=== PATIENT | male | born 1945 | race Caucasian/White ===

== ENCOUNTER 2017-07-09 09:01 | Day surgery (SDC) | payer MEDICARE, BC ==
[~2017-07-09 09:01] MED LIST: Lactated Ringers 1,000 ML IV SCH; Propofol 200 MG/20 ML SDV ONE; fentaNYL 100 MCG/2 ML SDV ONE
[2017-07-09 12:41] VITALS: BP 144/94
--- NOTE | 2017-07-09 18:30 | OR ---
DATE OF PROCEDURE: 07/09/2017 PREOPERATIVE DIAGNOSIS: History of precancerous polyps. POSTOPERATIVE DIAGNOSIS: Diverticulosis, right and transverse colon small polyps, history of precancerous polyps. PROCEDURE: Colonoscopy to the cecum with biopsy resection of right colon and transverse colon polyps. SURGEON: Suhail Lyman MD. ANESTHESIA: IV anesthesia with monitored anesthesia care. INDICATION: This is a 71-year-old white male who is referred for a colonoscopy because of a history of precancerous polyps. He says his last colonoscopic exam was done over a year ago. I counseled him for a colonoscopy with possible biopsy and/or polypectomy including risks and alternatives, and he gave his informed consent to proceed. DESCRIPTION OF PROCEDURE: The patient was placed in the left lateral decubitus position. IV anesthesia was administered by the Anesthesia Service. Time-out was held. A rectal exam was performed, which was unremarkable. The flexible video Olympus colonoscope was introduced through his anus, up his rectum, and out his colon all way to the cecum. En route, we saw several left-sided diverticula. There was no bleeding or inflammation associated with any of them. Additionally, en route to the cecum, we saw a small transverse colon polyp, which was removed with the biopsy forceps. Once the cecum was reached, the scope was slowly withdrawn examining the mucosa throughout. We saw a small polyp in the right colon, which was removed with the biopsy forceps. The scope was withdrawn further with no other additional lesions noted. The scope was retroflexed in the rectum with some hemorrhoidal tissue seen, fairly unremarkable. The scope was straightened and removed. He tolerated the procedure well. Suhail Lyman MD /[id number] MTDD
== END 2017-07-09 12:45 | disposition home or self-care (01) ==
LOC: JP.SDS 09:01
PROVIDERS: ATTEND Surgery
DX: Z12.11 Encounter for screening for malignant neoplasm of colon (principal); D12.2 Benign neoplasm of ascending colon; D12.3 Benign neoplasm of transverse colon; K57.30 Diverticulosis of large intestine without perforation or abscess without bleeding; Z86.010 Personal history of colon polyps
CPT/HCPCS: 45380; 88305; J2704; J3010

== ENCOUNTER 2018-03-06 08:46 | Emergency (ER) | payer MEDICARE, BC ==
[2018-03-06] MEDS ORDERED: HYDROmorphone 0.5 MG/0.5 ML Syringe IM ONE (09:25)
--- NOTE | 2018-03-06 09:27 | EDM.PDOC ---
ED HPI GENERAL MEDICAL PROBLEM - General Chief Complaint: Headache Stated Complaint: INJURED WHILE PULLING OUT A HOSE Time Seen by Provider: 03/06/18 09:26 Source of Information: Reports: Patient History Limitations: Reports: No Limitations - History of Present Illness INITIAL COMMENTS - FREE TEXT/NARRATIVE: pt is on coumadin and he fell and hit the back of his head on Sunday. On Sunday he developed alot of lit sensitivity and a bad headache. Onset: Other ( Headache started on Sunday. ) Duration: Hour(s):, Getting Worse Location: Reports: Head, Back Associated Symptoms: Reports: No Other Symptoms Headache Pain Score (Numeric/FACES): 8 Lower Sacral Pain Score (Numeric/FACES): 5 - Related Data Allergies Allergy/AdvReac Type Severity Reaction Status Date / Time No Known Allergies Allergy Verified 07/09/17 09:08 Home Meds: Home Meds Aspirin 81 mg PO DAILY 06/12/16 [History] Cholecalciferol (Vitamin D3) [Vitamin D3] 2,000 unit PO DAILY 06/12/16 [History] Furosemide [Lasix] 40 mg PO DAILY 06/12/16 [History] Metoprolol Tartrate [Lopressor] 25 mg PO BID 06/12/16 [History] Potassium Chloride [Klor-Con M20] 10 meq PO DAILY 06/12/16 [History] Terazosin [Hytrin] 5 mg PO BEDTIME 06/12/16 [History] Warfarin [Coumadin] 5 mg PO ASDIRECTED 06/12/16 [History] Melatonin 3 mg PO BEDTIME PRN 06/14/16 [History] Losartan [Cozaar] 100 mg PO DAILY 07/06/17 [History] Past Medical History HEENT History: Reports: Impaired Vision Cardiovascular History: Reports: Afib, Hypertension, Pacemaker, Other (See Below ) Other Cardiovascular History: ICD/PACEMAKER Respiratory History: Reports: None Gastrointestinal History: Reports: None Genitourinary History: Reports: Other (See Below) Other Genitourinary History: 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 Musculoskeletal History: Reports: Arthritis Neurological History: Reports: None Psychiatric History: Reports: None Endocrine/Metabolic History: Reports: None Hematologic History: Reports: None Immunologic History: Reports: None Oncologic (Cancer) History: Reports: Basal Cell Carcinoma Dermatologic History: Reports: None - Infectious Disease History Infectious Disease History: Reports: None - Past Surgical History Head Surgeries/Procedures: Reports: None Cardiovascular Surgical History: Reports: AICD, Other (See Below) Other Cardiovascular Surgeries/Procedures: ANGIOGRAM GI Surgical History: Reports: Colonoscopy, Hernia, Inguinal Musculoskeletal Surgical History: Reports: None Social & Family History - Family History Family Medical History: Noncontributory - Tobacco Use Smoking Status *Q: Never Smoker - Caffeine Use Caffeine Use: Reports: Coffee - Alcohol Use Days Per Week of Alcohol Use: 7 Number of Drinks Per Day: 2 Total Drinks Per Week: 14 - Recreational Drug Use Recreational Drug Use: No ED ROS GENERAL - Review of Systems Review Of Systems: See Below Constitutional: Reports: No Symptoms HEENT: Reports: Other (marked lite sensitivity) Respiratory: Reports: No Symptoms Cardiovascular: Reports: No Symptoms Endocrine: Reports: No Symptoms GI/Abdominal: Reports: Nausea : Reports: No Symptoms Musculoskeletal: Reports: No Symptoms Skin: Reports: No Symptoms Neurological: Reports: Headache, Other (very slight confusion) Psychiatric: Reports: No Symptoms - Physical Exam Exam: See Below Text/Narrative:: pt arrived with a lite sensitity and a very severe headache. He fell on sunday and he hit the back of his head. he is on coumadin therapy. Exam Limited By: No Limitations General Appearance: Alert, Moderate Distress, Other ( He describes his headache as a 8. ) Ears: Normal TMs Nose: Normal Inspection Throat/Mouth: Normal Inspection Head Exam: Other (Pt does not have alot of swelling or hematoma on the back of his head. ) Neck: Normal Inspection Respiratory/Chest: No Respiratory Distress Cardiovascular: Regular Rate, Rhythm GI/Abdominal: Soft, Non-Tender (Male) Exam: Deferred Rectal (Males) Exam: Deferred Neuro Exam (Abbreviated): Alert, Oriented, Normal Cognition Back Exam: Normal Inspection Extremities: Normal Inspection Psychiatric: Normal Affect Course - Vital Signs Last Recorded V/S: Last Vital Signs Temp 36.0 C 03/06/18 10:32 Pulse 70 03/06/18 10:32 Resp 13 03/06/18 10:32 BP 161/89 H 03/06/18 10:32 Pulse Ox 96 03/06/18 10:32 - Orders/Labs/Meds Labs: Laboratory Tests 03/06/18 03/06/18 Range/Units 09:25 09:39 WBC 11.4 H (4.5-11.0) K/uL RBC 4.96 (4.30-5.90) M/uL Hgb 15.0 (12.0-15.0) g/dL Hct 44.8 (40.0-54.0) % MCV 90 (80-98) fL MCH 30 (27-31) pg MCHC 34 (32-36) % Plt Count 181 (150-400) K/uL Neut % (Auto) 87 H (36-66) % Lymph % (Auto) 5 L (24-44) % [place] % (Auto) 8 H (2-6) % Eos % (Auto) 0 L (2-4) % Baso % (Auto) 0 (0-1) % PT 19.7 H (9.5-12.0) sec INR 1.80 H (0.80-1.20) Meds: Medications Discontinued Medications Generic Name Dose Route Start Last Admin Trade Name Freq PRN Reason Stop Dose Admin Hydromorphone HCl 0.5 mg 03/06/18 09:25 03/06/18 09:29 Dilaudid IM 03/06/18 09:26 0.5 mg ONETIME ONE Administration - Re-Assessments/Exams Free Text/Narrative Re-Assessment/Exam: 03/06/18 10:03 cat scan howed a good sized subaranoid bleed in the rt temporal fossa. He may need evaluation of his lumbar area which was not done in [place]. Departure - Departure Time of Disposition: 10:40 Disposition: DC/Tfer to Acute Hospital 02 Condition: Fair Clinical Impression: Subarachnoid hemorrhage, History of Coumadin therapy, Lumbar contusion - Discharge Information Referrals: Omer Guillen MD [Primary Care Provider] - Forms: ED Department Discharge Care Plan Goals: transfer to [facility]-- neurosurgery care.
--- NOTE | 2018-03-06 10:18 | CT ---
CT Head wo Cont CLINICAL HISTORY: Head trauma, headache COMPARISON: None TECHNIQUE: Transverse scans were obtained from the base of the skull through the vertex without IV co ntrast on a multislice, multidetector CT scanner. Auto dosage reduction and iterative reconstruction techniques employed. FINDINGS: There is subdural hemorrhage on the right involving the right temporal fossa tentorium and sagittal sulcus. The there is minimal asymmetry which may be mass effect on the right lateral ventric le. The there is no shift of the midline. Underlying contusion in the right occipital lobe is not exc luded. The no calvarial fracture is identified. IMPRESSION: Subdural hematoma in the right the temporal fossa, tentorium and sagittal sulcus without significant mass effect. Underlying right occipital contusion is not excluded. Short-term follow-up recommended
[2018-03-06 10:33] VITALS: BP 161/89
== END 2018-03-06 10:52 ==
LOC: JP.ED 08:46
DX: S06.6X9A Traumatic subarachnoid hemorrhage with loss of consciousness of unspecified duration, initial encounter (principal); S30.0XXA Contusion of lower back and pelvis, initial encounter; I48.91 Unspecified atrial fibrillation; I10 Essential (primary) hypertension; M19.90 Unspecified osteoarthritis, unspecified site; Z79.01 Long term (current) use of anticoagulants; Z79.899 Other long term (current) drug therapy; Z79.82 Long term (current) use of aspirin; W01.198A Fall on same level from slipping, tripping and stumbling with subsequent striking against other object, initial encounter
CPT/HCPCS: 36415; 70450; 85025; 85610; 96372; 99285; J1170

== ENCOUNTER 2020-05-26 02:43 | Emergency (ER) | payer MEDICARE ==
[2020-05-26 03:03] VITALS: BP 164/83; PULSE 70
[2020-05-26] MEDS ORDERED: Bacitracin Oint 1 GM U/D Packet TOP ONE (03:10)
[2020-05-26] MEDS ORDERED: Lidocaine 1% with EPINEPHrine 1:100,000 50 ML MDV INFILT ONE (03:10)
--- NOTE | 2020-05-26 03:15 | EDM.PDOC ---
ED HPI GENERAL MEDICAL PROBLEM - General Chief Complaint: Laceration Stated Complaint: CUT LEFT HAND Time Seen by Provider: 05/26/20 03:05 Source of Information: Reports: Patient, Family History Limitations: Reports: No Limitations - History of Present Illness INITIAL COMMENTS - FREE TEXT/NARRATIVE: 74-year-old male with a laceration on the back of his left hand that he sustain ed about 12 hours ago, but it continues to bleed so now he wants it repaired. He is on Coumadin. No other injury. Onset: Sudden Duration: Hour(s): Location: Reports: Upper Extremity, Left Associated Symptoms: Reports: No Other Symptoms - Related Data Allergies Allergy/AdvReac Type Severity Reaction Status Date / Time No Known Allergies Allergy Verified 05/26/20 03:07 Home Meds: Home Meds Cholecalciferol (Vitamin D3) [Vitamin D3] 1,000 unit PO DAILY 06/12/16 [History] Furosemide [Lasix] 40 mg PO DAILY 06/12/16 [History] Terazosin [Hytrin] 5 mg PO BEDTIME 06/12/16 [History] Warfarin [Coumadin] 5 mg PO ASDIRECTED 06/12/16 [History] Losartan [Cozaar] 100 mg PO DAILY 07/06/17 [History] carvediloL [Carvedilol] 1 tab PO BID 05/26/20 [History] hydrALAZINE [Apresoline] 1 tab PO TID 05/26/20 [History] Past Medical History HEENT History: Reports: Impaired Vision Cardiovascular History: Reports: Afib, Hypertension, Pacemaker, Other (See Below) Other Cardiovascular History: ICD/PACEMAKER Respiratory History: Reports: None Gastrointestinal History: Reports: None Genitourinary History: Reports: Other (See Below) Other Genitourinary History: 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 Musculoskeletal History: Reports: Arthritis Neurological History: Reports: None Psychiatric History: Reports: None Endocrine/Metabolic History: Reports: None Hematologic History: Reports: None Immunologic History: Reports: None Oncologic (Cancer) History: Reports: Basal Cell Carcinoma Dermatologic History: Reports: None - Infectious Disease History Infectious Disease History: Reports: None - Past Surgical History Head Surgeries/Procedures: Reports: None Cardiovascular Surgical History: Reports: AICD, Other (See Below) Other Cardiovascular Surgeries/Procedures: ANGIOGRAM GI Surgical History: Reports: Colonoscopy, Hernia, Inguinal Musculoskeletal Surgical History: Reports: None Social & Family History - Family History Family Medical History: Noncontributory - Caffeine Use Caffeine Use: Reports: Coffee ED ROS GENERAL - Review of Systems Review Of Systems: See Below Constitutional: Denies: Fever, Chills Respiratory: Denies: Shortness of Breath Cardiovascular: Denies: Chest Pain GI/Abdominal: Denies: Nausea, Vomiting Neurological: Denies: Headache ED EXAM, SKIN/RASH Exam: See Below Exam Limited By: No Limitations General Appearance: Alert, No Apparent Distress Head: Atraumatic Respiratory/Chest: No Respiratory Distress Extremities: Other (Exam is otherwise limited to the left hand. The patient is a 3 cm curved laceration on the top of his hand which is actively bleeding. Distal CMS is intact, no significant underlying structures are involved) Neurological: Alert, Oriented Psychiatric: Normal Affect, Normal Mood Course - Vital Signs Last Recorded V/S: Last Vital Signs Temp 97.7 F 05/26/20 03:15 Pulse 70 05/26/20 03:15 Resp 18 05/26/20 03:15 BP 164/83 H 05/26/20 03:15 Pulse Ox 94 L 05/26/20 03:15 - Orders/Labs/Meds Meds: Medications Discontinued Medications Generic Name Dose Route Start Last Admin Trade Name Michaelq PRN Reason Stop Dose Admin Bacitracin 1 dose 05/26/20 03:10 05/26/20 03:25 Bacitracin Oint 1 Gm TOP 05/26/20 03:11 1 dose ONETIME ONE Administration Diphtheria/Tetanus/Acell Pertussis 0.5 ml 05/26/20 03:36 05/26/20 03:45 Adacel IM 05/26/20 03:37 0.5 ml .ONCE ONE Administration Lidocaine/Epinephrine 30 ml 05/26/20 03:10 05/26/20 03:25 Xylocaine 1% With Epinephrine 1:100,000 INFILT 05/26/20 03:11 30 ml ONETIME ONE Administration - Re-Assessments/Exams Free Text/Narrative Re-Assessment/Exam: 05/26/20 03:35 The wound was infiltrated with 1% lidocaine with epinephrine. It was then cleansed thoroughly with saline, some underlying clot on the flap was removed. Six 5-0 Ethilon sutures were used to close the laceration. There was still some slight oozing through the suture holes but the brisk bleeding was controlled. Topical bacitracin and pressure dressing was applied that he will keep on till tomorrow, he was also given a Tdap booster. Sutures can be removed in 7 days. Departure - Departure Time of Disposition: 03:53 Disposition: Home, Self-Care 01 Clinical Impression: Laceration of left hand Qualifiers: Encounter type: initial encounter Foreign body presence: without foreign body Qualified Code(s): S61.412A - Laceration without foreign body of left hand, initial encounter - Discharge Information Instructions: Laceration Care, Adult Referrals: Omer Guillen MD [Primary Care Provider] - Forms: ED Department Discharge Care Plan Goals: Keep wound covered and clean while healing. Increase activity as tolerated and sutures can be removed in 7 days. Return sooner if concerns of persistent bleeding, infection, or not healing satisfactorily. Sepsis Event Note (ED) - Focused Exam Vital Signs: Vital Signs Temp Pulse Resp BP Pulse Ox 05/26/20 03:15 97.7 F 70 18 164/83 H 94 L 05/26/20 02:59 97.7 F 70 18 164/83 H 94 L
[2020-05-26] MEDS ORDERED: Diphtheria,Pertussis(Acell),Tetanus Vaccine 0.5 ML SDV IM ONE (03:36)
== END 2020-05-26 03:53 | disposition home or self-care (01) ==
LOC: JP.ED 02:43
DX: S61.412A Laceration without foreign body of left hand, initial encounter (principal); I48.91 Unspecified atrial fibrillation; I10 Essential (primary) hypertension; Z95.0 Presence of cardiac pacemaker; Z79.899 Other long term (current) drug therapy; Z79.01 Long term (current) use of anticoagulants; W26.9XXA Contact with unspecified sharp object(s), initial encounter
CPT/HCPCS: 12002; 90471; 90715; 99282-25

== ENCOUNTER 2020-06-21 10:19 | Day surgery (SDC) | payer MEDICARE ==
[~2020-06-21 10:19] MED LIST changes: -Lactated Ringers 1,000 ML IV SCH; +Midazolam 1 MG/ML 2 ML SDV ONE
[2020-06-21] MEDS ORDERED: Dextrose 5%-Lactated Ringers 1,000 ML IV SCH (11:30)
[2020-06-21] MEDS ORDERED: Propofol 200 MG/20 ML SDV ONE (12:56)
[2020-06-21 13:14] VITALS: PULSE 70
[2020-06-21 14:06] VITALS: BP 152/94
--- NOTE | 2020-06-25 14:13 | OR ---
DATE OF PROCEDURE: 06/21/2020 SURGEON: Ricardo Jacobs MD PREOPERATIVE DIAGNOSIS: History of colon polyps. POSTOPERATIVE DIAGNOSES: 1. Three recurrent colon polyps. 2. Left colonic diverticulosis. OPERATIVE PROCEDURE: Flexible colonoscopy with polypectomy by snare technique x3. ANESTHESIA: IV sedation. INDICATION FOR PROCEDURE: A 74-year-old presenting for followup colonoscopy. He does have a history of colon polyps in the past. Plan is to proceed with colonoscopy with polypectomy as indicated. Potential risks including bleeding and perforation were discussed, and the patient wishes to proceed. DETAILS OF PROCEDURE: The patient was taken to the operative room and placed in a left lateral decubitus position. IV sedation was administered after which the initial digital rectal exam was performed and was unremarkable. The colonoscope was then passed into the rectum with retroflexion revealing uncomplicated hemorrhoidal columns. The scope was eventually passed to the cecum. The prep was fairly good. There was some uncomplicated left colonic diverticulosis. Within the cecum and ascending colon, there were 3 small polyps. Each of these was excised with the use of cautery snare technique, removed, and sent as separate specimens. Good hemostasis was noted at the polypectomy sites. The scope was then withdrawn. No additional polyps were seen, and the procedure was then concluded. Given the patient having history of multiple polyps in the past and a relatively rapid recurrence of 3 polyps, recommendation would be to repeat colonoscopy in 2 years. We will call the patient with the present polyp pathology report. Ricardo Jacobs MD /[id number]
== END 2020-06-21 14:20 | disposition home or self-care (01) ==
LOC: JP.SDS 10:19
PROVIDERS: ATTEND Surgery
DX: Z12.11 Encounter for screening for malignant neoplasm of colon (principal); D12.0 Benign neoplasm of cecum; D12.3 Benign neoplasm of transverse colon; K57.30 Diverticulosis of large intestine without perforation or abscess without bleeding; K64.9 Unspecified hemorrhoids; I48.91 Unspecified atrial fibrillation; I42.9 Cardiomyopathy, unspecified
CPT/HCPCS: 45385; 88305; J2250; J2704; J3010; J7121

== ENCOUNTER 2022-07-14 07:00 | Day surgery (SDC) | payer MEDICARE ==
[2022-07-14] MEDS ORDERED: Lactated Ringers 1,000 ML IV SCH (07:15)
[2022-07-14] MEDS ORDERED: fentaNYL 100 MCG/2 ML SDV ONE (07:30)
[2022-07-14] MEDS ORDERED: Propofol 200 MG/20 ML SDV ONE ×3 (07:31→09:15)
[2022-07-14 10:27] VITALS: BP 135/64; PULSE 71
== END 2022-07-14 10:49 | disposition home or self-care (01) ==
LOC: JP.SDS 07:00
PROVIDERS: ATTEND Student in an Organized Health Care Education/Training Program
DX: Z12.11 Encounter for screening for malignant neoplasm of colon (principal); D12.0 Benign neoplasm of cecum; D12.3 Benign neoplasm of transverse colon; K57.30 Diverticulosis of large intestine without perforation or abscess without bleeding; I48.91 Unspecified atrial fibrillation; I10 Essential (primary) hypertension; I42.9 Cardiomyopathy, unspecified; Z86.010 Personal history of colon polyps
CPT/HCPCS: 36415; 45385; 85610; J2704; J3010; J7120; 88305